=== PATIENT | male | born 1975 | race Caucasian/White ===

== ENCOUNTER → 2017-11-27 | Outpatient (CLI) | payer BC ==
--- NOTE | 2017-11-27 10:20 | ECHOF ---
Referral Reason:K94.31 Abnormal EKG MEASUREMENTS -------- HEIGHT: 157.5 cm WEIGHT: 108.9 kg BP: 126/71 IVSd: 1.2 cm (0.6 - 1.1) LVIDd: 4.1 cm (3.9 - 5.3) LVPWd: 1.5 cm (0.6 - 1.1) IVSs: 1.8 cm LVIDs: 2.8 cm LVPWs: 1.7 cm Ao Diam: 3.5 cm (2.0 - 3.7) AV Cusp: 2.0 cm (1.5 - 2.6) LA Diam: 2.5 cm (2.7 - 3.8) MV EXCURSION: 16.659 mm (> 18.000) MV EF SLOPE: 77 mm/s (70 - 150) EPSS: 0.3 cm MV E Oswaldo: 0.68 m/s MV DecT: 170 ms MV A Oswaldo: 0.73 m/s MV E/A Ratio: 0.93 RAP: 5.00 mmHg RVSP: 19.35 mmHg FINDINGS -------- Sinus rhythm. This was a technically good study. The left ventricular size is normal. There is mild concentric left ventricular hypertrophy. Overa ll left ventricular systolic function is normal with, an EF between 55 - 60 %. The right ventricle is normal in size and function. The left atrium is normal in size. The right atrium is normal in size. The aortic valve is trileaflet, and appears structurally normal. No aortic stenosis or regurgitation. There is trace mitral regurgitation. Trace tricuspid regurgitation present. The right ventricular systolic pressure, as measured by Dopp ler, is 19.35mmHg. Pulmonic valve appears structurally normal. The aortic root size is normal. Normal inferior vena cava with normal inspiratory collapse consistent with estimated right atrial pre ssure of 5 mmHg. The pericardium is normal. CONCLUSIONS -------- 1. Sinus rhythm. 2. This was a technically good study. 3. The left ventricular size is normal. 4. There is mild concentric left ventricular hypertrophy. 5. Overall left ventricular systolic function is normal with, an EF between 55 - 60 %. 6. The right ventricle is normal in size and function. 7. The left atrium is normal in size. 8. The right atrium is normal in size. 9. The aortic valve is trileaflet, and appears structurally normal. No aortic stenosis or regurgitati on. 10. There is trace mitral regurgitation. 11. Trace tricuspid regurgitation present. 12. The right ventricular systolic pressure, as measured by Doppler, is 19.35mmHg. 13. Pulmonic valve appears structurally normal. 14. The aortic root size is normal. 15. Normal inferior vena cava with normal inspiratory collapse consistent with estimated right atrial pressure of 5 mmHg. 16. The pericardium is normal. FORMING MACHINE ADJUSTER: Asiya Sommers RDCS
== END | disposition home or self-care (01) ==
LOC: RADNMMAIN 08:24
PROVIDERS: ATTEND Family Medicine
DX: I51.7 Cardiomegaly (principal)
CPT/HCPCS: 93306

== ENCOUNTER → 2017-11-28 | Outpatient (CLI) | payer BC ==
[~2017-11-28] MED LIST: REGADENOSON 0.4 MG/5 ML SYRINGE IV ONE
--- NOTE | 2017-11-28 10:19 | EST ---
EXERCISE STRESS AGE: 42 SEX: M HT: 74" WT: 240 PROTOCOL: Lexiscan Cardiolite Stress Test HEART RATE REST: 76 BLOOD PRESSURE REST: 125/87 MAXIMUM HEART RATE ACHIEVED: 105 MAXIMUM BLOOD PRESSURE: 141/80 85% MPHR: 153 100% MPHR: 180 INDICATIONS: Abnormal EKG. CLINICAL INFORMATION: Baseline EKG shows sinus rhythm, normal axis, normal intervals. The patient was given intravenous Lexiscan as per protocol. Did not have chest pain or diagnostic ST-segment depression. CONCLUSION: 1. Negative stress test by EKG criteria. 2. Cardiolite portion of the stress test will be reported separately. MMODL / IJN: [id number] /
--- NOTE | 2017-11-28 11:40 | NM ---
EXAMINATION TYPE: NM stress lexiscan cardiolite DATE OF EXAM: 11/28/2017 COMPARISON: NONE HISTORY: Abnormal EKG. No chest pain, shortness of breath, palpitations, angina, hyperlipidemia, diab etes, hypertension, family history of coronary artery disease, tobacco abuse, prior MS, prior CABG, o r prior catheterization. TECHNIQUE: After the intravenous administration of 10.54 mCi Tc 99m Sestamibi - Cardiolite resting S PECT images acquired 45 minutes post injection. The patient received 0.4mg Lexiscan, 30.0 mCi Tc 99m Sestamibi - Stress images obtained [address] injection FINDINGS: Review of stress and rest SPECT images demonstrates no distinct perfusion abnormality. Gated analysi s shows normal wall motion with an estimated left ventricular ejection fraction of 57 %. Calculated T ID is within normal limits at 0.90. IMPRESSION: 1. No scintigraphic evidence for reversible ischemia. 2. Estimated left ventricular ejection fraction of 57 %.
== END | disposition home or self-care (01) ==
LOC: RADNMMAIN 07:57
PROVIDERS: ATTEND Family Medicine
DX: R94.31 Abnormal electrocardiogram [ECG] [EKG] (principal)
CPT/HCPCS: 93017; 78452; A9500; J2785

== ENCOUNTER → 2020-12-17 | Outpatient (CLI) | payer BC ==
--- NOTE | 2020-12-17 10:43 | P.STRESS ---
- Stress Test Note Stress Test Results/Findings: Exam Performed: NM stress lexiscan cardiolite Exam Date: 12/17/20 Reason for Exam: ABN ECG Height: 6 ft 2 in Weight: 102 kg Protocol: LEXISCAN CARDIOLITE Stage: NA Duration of Exercise: NA Resting Heart Rate: 66 Resting Blood Pressure: 145/88 Maximum Achieved Heart Rate: 111 Maximum Achieved Blood Pressure: 154/88 85% PMHR: 150 100% PMHR: 177 METS: NA Technologist Comment: Stress Test Results/Findings: This is a 45-year-old gentleman with history of hypertension, family history of ischemic heart disease being evaluated for cardiac status. Because of abnormal EKG. Stress data: Baseline EKG showed sinus rhythm with small Q waves in inferior leads. Blood pressure at rest is 145/88 with pulse rate of 66. A standard dose of Lexiscan was infused EKGs taken during and after infusion did not reveal an significant change from the baseline. Final impression: #1. Negative Lexiscan stress test #2. Report on the nuclear images to be given by the radiologist.
--- NOTE | 2020-12-17 12:29 | NM ---
EXAMINATION TYPE: NM stress lexiscan cardiolite DATE OF EXAM: 12/17/2020 COMPARISON: NONE HISTORY: Abnormal EKG TECHNIQUE: After the intravenous administration of 9.9 mCi Tc 99m Sestamibi - Cardiolite resting SPE CT images acquired 60 minutes post injection. The patient received 0.4mg Lexiscan, 25.3 mCi Tc 99m Sestamibi - Stress images obtained [address] injection FINDINGS: Review of stress and rest SPECT images demonstrates no distinct perfusion abnormality. Gated analysi s shows normal wall motion with an estimated left ventricular ejection fraction of 52 %. IMPRESSION: No scintigraphic evidence for reversible ischemia.
== END | disposition home or self-care (01) ==
LOC: RADNMMAIN 07:03
PROVIDERS: ATTEND Family Medicine
DX: R94.31 Abnormal electrocardiogram [ECG] [EKG] (principal)
CPT/HCPCS: 93017; 78452; A9500

== ENCOUNTER → 2021-11-24 | Outpatient (CLI) | payer OTHER ==
--- NOTE | 2021-11-24 12:45 | XR ---
EXAMINATION TYPE: XR knee complete RT DATE OF EXAM: 11/24/2021 COMPARISON: NONE HISTORY: Pain TECHNIQUE: Three views are submitted. FINDINGS: Mild narrowing of the joint space. Small spur along the upper margin of the patella. Moderate suprapa tellar bursal fluid collection. Sclerotic density overlying the proximal tibia likely related to bone island. Osseous structures are intact. No acute fracture seen. IMPRESSION: 1. No acute fracture or dislocation. There is a suprapatellar bursal fluid collection which can be a ssociated with internal derangement of the knee. Consider follow-up MRI.
== END | disposition home or self-care (01) ==
LOC: RADXRMAIN 12:21
PROVIDERS: ATTEND Emergency Medicine
DX: M23.8X1 Other internal derangements of right knee (principal)

== ENCOUNTER → 2021-12-09 | Outpatient (CLI) | payer OTHER ==
--- NOTE | 2021-12-10 03:12 | MR ---
EXAMINATION TYPE: MR knee RT wo con DATE OF EXAM: 12/09/2021 COMPARISON: None HISTORY: Right knee contusion. Multiple planar multi echo imaging of the right knee without contrast. There is patchy increased signal on T2 images in the lateral femoral condyle. There is small area of increased signal in the medial aspect medial femoral condyle. The collateral ligaments appear intact. There is increased signal in the anterior cruciate ligament at the attachment on the tibial spine. T he posterior cruciate ligament appears intact. There is some thinning of the anterior horn of the lat eral meniscus with small areas of increased signal. There is narrowing of the lateral joint space. Th ere is mild thinning of the medial meniscus. No evidence of medial meniscal tear. There is some cutan eous edema anterior to the knee. There is knee joint effusion. There is no fracture line seen. Patell a is intact. IMPRESSION: There is some increased signal within the distal femur consistent with bone bruise. There is minor sp urring of the lateral femoral and tibial condyles and osteoarthritic changes. Multiple small tears of the anterior horn of the lateral meniscus. There is partial tear of the anterior cruciate ligament a t the attachment on the tibial spine. Moderate knee joint effusion.
== END | disposition home or self-care (01) ==
LOC: RADMRIMAIN 20:52
PROVIDERS: ATTEND Emergency Medicine
DX: S83.511D Sprain of anterior cruciate ligament of right knee, subsequent encounter (principal); M17.11 Unilateral primary osteoarthritis, right knee; S83.281D Other tear of lateral meniscus, current injury, right knee, subsequent encounter; M25.461 Effusion, right knee; X58.XXXD Exposure to other specified factors, subsequent encounter

== ENCOUNTER 2022-08-16 17:02 | Inpatient (IN) | payer BC ==
--- NOTE | 2022-08-16 18:59 | ED ---
General Adult HPI - General Chief complaint: Extremity Problem,Nontraumatic Stated complaint: left arm weakness/numbness Time Seen by Provider: 08/16/22 18:48 Source: patient, RN notes reviewed, old records reviewed Mode of arrival: ambulatory Limitations: no limitations - History of Present Illness Initial comments: This is a 47-year-old male presents emergency Department who denies any past medical history. Patient states yesterday in the early afternoon he started noticing that his left hand was losing fine motor skills and he had a decreased sensation in the hand and fingers. Patient states he noticed it was difficult to grab some books that he want to carry it was also difficult for him to shake a salt shaker. Patient denies any actual weakness in that arm. Patient denies any headache patient denies any visual disturbance. Patient denies any other extremity problem. Patient denies any facial droop or speech abnormality. He denies any recent injury or trauma. Patient denies any similar symptoms in the past. Patient denies chest pain difficulty breathing or shortness of breath. Patient denies any recent fever chills or cough. - Related Data Home Medications Medication Instructions Recorded Confirmed Meloxicam [Mobic] 15 mg PO DAILY PRN 08/16/22 08/16/22 Spironolactone 25 mg PO DAILY 08/16/22 08/16/22 Testosterone Cypionate 600 mg IM Q30D 08/16/22 08/16/22 [Depo-Testosterone] amLODIPine [Norvasc] 10 mg PO DAILY 08/16/22 08/16/22 methylPREDNISolone Dose Pack See Taper PO DIRECTED 08/16/22 08/16/22 [Medrol Dose Pack] traMADol HCL 50 mg PO DAILY PRN 08/16/22 08/16/22 Allergies Allergy/AdvReac Type Severity Reaction Status Date / Time No Known Allergies Allergy Verified 08/16/22 19:50 Review of Systems ROS Statement: Those systems with pertinent positive or pertinent negative responses have been documented in the HPI. ROS Other: All systems not noted in ROS Statement are negative. Past Medical History Past Medical History: No Reported History History of Any Multi-Drug Resistant Organisms: None Reported Past Surgical History: No Surgical Hx Reported Past Psychological History: No Psychological Hx Reported Smoking Status: Never smoker Past Alcohol Use History: None Reported Past Drug Use History: None Reported General Exam - General Exam Comments Initial Comments: GENERAL: Patient is well-developed and well-nourished. Patient is nontoxic and well- hydrated and is in no acute distress. ENT: Neck is soft and supple. No significant lymphadenopathy is noted. Oropharynx is clear. Moist mucous membranes. Neck has full range of motion without eliciting any pain. EYES: The sclera were anicteric and conjunctiva were pink and moist. Extraocular movements were intact and pupils were equal round and reactive to light. Eyelids were unremarkable. PULMONARY: Unlabored respirations. Good breath sounds bilaterally. No audible rales rhonchi or wheezing was noted. CARDIOVASCULAR: There is a regular rate and rhythm without any murmurs gallops or rubs. ABDOMEN: Soft and nontender with normal bowel sounds. No palpable organomegaly was noted. There is no palpable pulsatile mass. SKIN: Skin is clear with no lesions or rashes and otherwise unremarkable. NEUROLOGIC: Patient is alert and oriented x3. Cranial nerves II through XII are grossly intact. Motor and sensory are also intact. Normal speech, volume and content. Symmetrical smile. Finger to nose cerebellar testing is slower on the left than the right. Patient's NIH is 2 MUSCULOSKELETAL: Normal extremities with adequate strength and full range of motion. No lower extremity swelling or edema. No calf tenderness. LYMPHATICS: No significant lymphadenopathy is noted PSYCHIATRIC: Normal psychiatric evaluation. Limitations: no limitations Course Vital Signs 08/16/22 08/16/22 17:15 19:02 Temperature 97.3 F L Pulse Rate 105 H 100 Respiratory 18 20 Rate Blood Pressure 134/90 136/89 O2 Sat by Pulse 97 98 Oximetry Medical Decision Making - Medical Decision Making CT head and CT of head and neck are all negative. Patient continues to have coordination problems with the left hand. - Lab Data Result diagrams: 08/16/22 19:00 08/16/22 19:00 Lab Results 08/16/22 08/16/22 08/16/22 Range/Units 19:00 19:00 19:00 WBC 10.9 H (3.8-10.6) k/uL RBC 5.79 (4.30-5.90) m/uL Hgb 17.3 (13.0-17.5) gm/dL Hct 51.9 (39.0-53.0) % MCV 89.5 (80.0-100.0) fL MCH 29.9 (25.0-35.0) pg MCHC 33.4 (31.0-37.0) g/dL RDW 14.2 (11.5-15.5) % Plt Count 321 (150-450) k/uL MPV 8.3 Neutrophils % 68 % Lymphocytes % 20 % Monocytes % 8 % Eosinophils % 2 % Basophils % 0 % Neutrophils # 7.4 (1.3-7.7) k/uL Lymphocytes # 2.2 (1.0-4.8) k/uL Monocytes # 0.9 (0-1.0) k/uL Eosinophils # 0.2 (0-0.7) k/uL Basophils # 0.1 (0-0.2) k/uL PT 11.2 (9.0-12.0) sec INR 1.0 (<1.2) APTT 23.8 (22.0-30.0) sec Sodium 139 (137-145) mmol/L Potassium 4.3 (3.5-5.1) mmol/L Chloride 103 (98-107) mmol/L Carbon Dioxide 24 (22-30) mmol/L Anion Gap 12 mmol/L BUN 12 (9-20) mg/dL Creatinine 0.95 (0.66-1.25) mg/dL Est GFR (CKD-EPI)AfAm >90 (>60 ml/min/1.73 sqM) Est GFR (CKD-EPI)NonAf >90 (>60 ml/min/1.73 sqM) Glucose 99 (74-99) mg/dL Calcium 9.7 (8.4-10.2) mg/dL Total Bilirubin 0.9 (0.2-1.3) mg/dL AST 30 (17-59) U/L ALT 39 (4-49) U/L Alkaline Phosphatase 63 (38-126) U/L Troponin I (0.000-0.034) ng/mL Total Protein 7.1 (6.3-8.2) g/dL Albumin 4.6 (3.5-5.0) g/dL 08/16/22 Range/Units 19:00 WBC (3.8-10.6) k/uL RBC (4.30-5.90) m/uL Hgb (13.0-17.5) gm/dL Hct (39.0-53.0) % MCV (80.0-100.0) fL MCH (25.0-35.0) pg MCHC (31.0-37.0) g/dL RDW (11.5-15.5) % Plt Count (150-450) k/uL MPV Neutrophils % % Lymphocytes % % Monocytes % % Eosinophils % % Basophils % % Neutrophils # (1.3-7.7) k/uL Lymphocytes # (1.0-4.8) k/uL Monocytes # (0-1.0) k/uL Eosinophils # (0-0.7) k/uL Basophils # (0-0.2) k/uL PT (9.0-12.0) sec INR (<1.2) APTT (22.0-30.0) sec Sodium (137-145) mmol/L Potassium (3.5-5.1) mmol/L Chloride (98-107) mmol/L Carbon Dioxide (22-30) mmol/L Anion Gap mmol/L BUN (9-20) mg/dL Creatinine (0.66-1.25) mg/dL Est GFR (CKD-EPI)AfAm (>60 ml/min/1.73 sqM) Est GFR (CKD-EPI)NonAf (>60 ml/min/1.73 sqM) Glucose (74-99) mg/dL Calcium (8.4-10.2) mg/dL Total Bilirubin (0.2-1.3) mg/dL AST (17-59) U/L ALT (4-49) U/L Alkaline Phosphatase (38-126) U/L Troponin I <0.012 (0.000-0.034) ng/mL Total Protein (6.3-8.2) g/dL Albumin (3.5-5.0) g/dL Disposition Clinical Impression: CVA (cerebral vascular accident) Disposition: ADMITTED IP TO THIS HOSP Referrals: Mansoor Linder MD [Primary Care Provider] - 1-2 days Time of Disposition: 20:22
[2022-08-16 19:28] LABS: Basophils # (A) 0.1 k/uL (0-0.2); Basophils % (A) 0 %; Eosinophils # (A) 0.2 k/uL (0-0.7); Eosinophils % (A) 2 %; HCT 51.9 % (39.0-53.0); HGB 17.3 gm/dL (13.0-17.5); Lymphocytes # (A) 2.2 k/uL (1.0-4.8); Lymphocytes % (A) 20 %; MCH 29.9 pg (25.0-35.0); MCHC 33.4 g/dL (31.0-37.0); MCV 89.5 fL (80.0-100.0); Mean Platelet Volume 8.3; Monocytes # (A) 0.9 k/uL (0-1.0); Monocytes % (A) 8 %; Neutrophils # (A) 7.4 k/uL (1.3-7.7); Neutrophils % (A) 68 %; Platelet Count 321 k/uL (150-450); RBC 5.79 m/uL (4.30-5.90); RDW 14.2 % (11.5-15.5); WBC 10.9 k/uL (3.8-10.6)
[2022-08-16 19:37] LABS: Partial Thromboplastin Time 23.8 sec (22.0-30.0); Prothrombin Time 11.2 sec (9.0-12.0)
[2022-08-16 19:54] LABS: ALT 39 U/L (4-49); AST 30 U/L (17-59); African American GFR (CKD) >90 (>60 ml/min/1.73 sqM); Albumin 4.6 g/dL (3.5-5.0); Alkaline Phosphatase 63 U/L (38-126); Anion Gap 12 mmol/L; Blood Urea Nitrogen 12 mg/dL (9-20); Calcium 9.7 mg/dL (8.4-10.2); Carbon Dioxide 24 mmol/L (22-30); Chloride 103 mmol/L (98-107); Glucose 99 mg/dL (74-99); Non-African American GFR(CKD) >90 (>60 ml/min/1.73 sqM); Potassium 4.3 mmol/L (3.5-5.1); Sodium 139 mmol/L (137-145); Total Bilirubin 0.9 mg/dL (0.2-1.3); Total Protein 7.1 g/dL (6.3-8.2)
--- NOTE | 2022-08-16 20:18 | CT ---
EXAMINATION TYPE: CT brain wo con CT DLP: 1206.6 mGycm, Automated exposure control for dose reduction was used. DATE OF EXAM: 08/16/2022 7:30 PM COMPARISON: CTA head neck same day.. CLINICAL INDICATION:Male, 47 years old with history of Neuro deficit, acute, stroke suspected, Neuro deficit, acute, stroke suspected TECHNIQUE: Brain: Axial CT images of the brain were obtained with coronal and sagittal reformats created and rev iewed. Contrast used: None. Oral contrast used: None. FINDINGS: Brain: Extra-axial spaces: No abnormal extra-axial fluid collections. Ventricular system: Within normal limits Cerebral parenchyma: No acute intraparenchymal hemorrhage or mass effect. The garza-white junction is well differentiated. Cerebellum: Unremarkable. Mass effect: No evidence of midline shift. Intracranial vasculature: unremarkable Soft tissues: Normal. Calvarium/osseous structures: No depressed skull fracture. Paranasal sinuses and mastoid air cells: Mild scattered paranasal sinus disease. Visualized orbits: Orbital contents are intact. IMPRESSION: No acute intracranial process.
--- NOTE | 2022-08-16 20:18 | CT ---
EXAMINATION TYPE: CT angio head neck CT DLP: 665.5 mGycm, Automated exposure control for dose reduction was used. DATE OF EXAM: 08/16/2022 8:00 PM COMPARISON: Same day CT brain.. CLINICAL INDICATION:Male, 47 years old with history of Neuro deficit, acute, stroke suspected;, Neuro deficit, acute, stroke suspected TECHNIQUE: Axially acquired helical CT angiogram of the head and neck was obtained with contrast. Axi al images are supplemented with 3D reconstructions which [facility] NASCET criteria used. Contrast used:65cc mL of Isovue 370 with IV Contrast, Oral contrast used: None. FINDINGS: CTA HEAD: No evidence of acute intracranial hemorrhage, mass effect, or midline shift. The ventricles, sulci, a nd cisterns are unremarkable. The visualized portions of the internal carotid arteries, middle cerebral arteries, anterior cerebral arteries, and posterior cerebral arteries are patent. The basilar and vertebral arteries are patent. CTA NECK: Right Carotid System: The common carotid artery and external carotid artery are patent. The carotid bifurcation demonstrate s no evidence of hemodynamically significant stenosis. The remaining portions of the internal carotid artery demonstrate normal size without significant narrowing. Left Carotid System: The common carotid artery and external carotid artery are patent. The carotid bifurcation demonstrate s no evidence of hemodynamically significant stenosis. The remaining portions of the internal carotid artery demonstrate normal size without significant narrowing. Vertebral arteries are patent without evidence hemodynamically significant stenosis. There is a three-vessel aortic arch. The origins of the great vessels are patent. No evidence of hemo dynamically significant stenosis. IMPRESSION: 1. No evidence of dissection of the cervical internal carotid arteries or vertebral arteries or any e vidence of significant stenosis at the carotid bifurcations. 2. No evidence of intracranial high-grade stenosis or intracranial aneurysm.
[2022-08-16] MEDS ORDERED: ASPIRIN 325 MG TAB PO STA (20:22)
--- NOTE | 2022-08-16 21:23 | XR ---
EXAMINATION TYPE: XR chest 2V DATE OF EXAM: 08/16/2022 9:05 PM COMPARISON: None TECHNIQUE: XR chest 2V Frontal and lateral views of the chest. CLINICAL INDICATION:Male, 47 years old with history of altered mental status; FINDINGS: Lungs/Pleura: There is no evidence of pleural effusion, focal consolidation, or pneumothorax. Pulmonary vascularity: Unremarkable. Heart/mediastinum: Cardiomediastinal silhouette is unremarkable. Musculoskeletal: No acute osseous pathology. IMPRESSION: No acute cardiopulmonary disease/process.
[2022-08-17] MEDS: ASPIRIN 325 MG TAB PO SCH (08:57)
[2022-08-17 09:00] LABS: Chol/HDL Ratio 5.15 Ratio; LDL Cholesterol,Calculated 120.2 mg/dL (0.0-131.0)
[2022-08-17] MEDS ORDERED: traMADol 50 MG TAB PO PRN (12:37)
--- NOTE | 2022-08-17 14:21 | P.CNNES ---
History of Present Illness Consult date: 08/17/22 Requesting physician: Isaias Renteria Reason for Consult: CVA History of Present Illness: Patient is a 47-year-old male came to the hospital yesterday at 5:02 PM for left arm incoordination and weakness. Patient states that his symptoms started 2 days ago on Sunday at noon when he noticed slight weakness of the left arm. Yesterday on Sunday, he noticed some coldness and numbness of the left arm, was not working as good. By 6 PM he noticed problems with coordination of the left arm, as it would pass point and was ataxic, not in full control of the left arm. He denies any balance problem, any symptoms related to the facial region, any symptoms related to the legs. No headache, no facial droop or slurred speech. He denies any history of optic neuritis, vertigo, any transient numbness. Patient states that he received flu shot last Sunday on 08/11/2022 and he felt could be reaction of the vaccine. He saw his primary physician yesterday, who gave him Medrol Dosepak. As patient's symptoms persisted, he came to the ER. Vital signs arrival blood pressure 134/90, pulse rate 105, temperature 97.3. B lood test shows WBC 10.9 normal hemoglobin and platelets. PT/PTT normal, CMP normal. CT head showed no acute intracranial process. I personally reviewed CT head, agree with the findings. CTA of head and neck are normal. I personally reviewed CTA head and neck and agree with the findings. Chest x-ray showed no acute cardiopulmonary disease. Patient denies any tobacco use, alcohol, marijuana use. He denies any diabetes. He has hypertension. Patient's home medications include spironolactone, meloxicam, tramadol 50 mg daily, Medrol Dosepak, amlodipine and testosterone shot 200 mg/mL every 30 days. Patient states his mother 72 years of age diagnosed with MS at age 60. Review of Systems Constitutional: Denies chills, Denies fever Eyes: denies blurred vision, denies pain Ears: deny: decreased hearing, earache Ears, nose, mouth and throat: Denies headache, Denies sore throat Cardiovascular: Denies chest pain, Denies shortness of breath Respiratory: Denies cough Gastrointestinal: Denies abdominal pain, Denies diarrhea, Denies nausea, Denies vomiting Genitourinary: Denies incontinence, Denies urinary retention Musculoskeletal: Denies myalgias Integumentary: Denies pruritus, Denies rash Neurological: Reports as per HPI Psychiatric: Denies anxiety, Denies depression Endocrine: Denies fatigue, Denies weight change Hematologic/Lymphatic: Denies easy bruising Allergic/Immunologic: Denies persistent infections Past Medical History Past Medical History: No Reported History History of Any Multi-Drug Resistant Organisms: None Reported Past Surgical History: No Surgical Hx Reported Past Psychological History: No Psychological Hx Reported Smoking Status: Never smoker Past Alcohol Use History: None Reported Past Drug Use History: None Reported - Past Family History Father Family Medical History: No Reported History Mother Family Medical History: No Reported History Medications and Allergies Home Medications Medication Instructions Recorded Confirmed Type Meloxicam [Mobic] 15 mg PO DAILY PRN 08/16/22 08/16/22 History Spironolactone 25 mg PO DAILY 08/16/22 08/16/22 History Testosterone Cypionate 600 mg IM Q30D 08/16/22 08/16/22 History [Depo-Testosterone] amLODIPine [Norvasc] 10 mg PO DAILY 08/16/22 08/16/22 History methylPREDNISolone Dose Pack See Taper PO DIRECTED 08/16/22 08/16/22 History [Medrol Dose Pack] traMADol HCL 50 mg PO DAILY PRN 08/16/22 08/16/22 History Allergies Allergy/AdvReac Type Severity Reaction Status Date / Time No Known Allergies Allergy Verified 08/16/22 19:50 Physical Examination - Vital Signs Vital Signs: Vital Signs Temp Pulse Pulse Resp BP BP Pulse Ox 08/17/22 03:45 85 18 119/88 94 L 08/16/22 23:20 88 17 125/81 93 L 08/16/22 22:00 98.2 F 94 18 167/85 96 08/16/22 21:29 68 20 136/88 998 H 08/16/22 21:01 88 16 136/89 99 08/16/22 19:30 88 16 136/89 98 08/16/22 19:02 100 20 136/89 98 08/16/22 17:15 97.3 F L 105 H 18 134/90 97 Intake and Output 08/16/22 08/17/22 08/17/22 22:59 06:59 14:59 Intake Total 118 Balance 118 Intake: Oral 118 Other: # Voids 1 Weight 108.862 kg Patient is a middle aged male, in no acute distress. Patient is alert awake oriented to time place and person. Speech and language functions are normal. Patient can name and repeat very well. No aphasia or dysarthria. Attention, concentration and fund of knowledge is adequate. On cranial nerve examination, pupils are equal, round and reacting to light, visual metcalf are full on confrontation, with no neglect on double simultaneous stimulation. Extraocular muscles are intact with no nystagmus. Face is symmetric, tongue protrudes to the midline. Palatal elevation and sensation normal, hearing and shoulder shrug normal, facial sensation normal. On muscle strength testing, there is left pronation with very mild drift. Patient's muscle strength is normal in arms and legs distally and proximally except left deltoid which is 5-. Deep tendon reflexes are (right/left) biceps 2/3, brachioradialis 2/3, knee 2/2, ankles 2/2 and plantars downgoing bilaterally. Sensory to touch and temperature is equal in the arms and legs with no neglect on double simultaneous stimulation. Cerebellar function showed mild to moderate ataxia for [id number] testing on the left, but not on the right. Patient has dysdiadochokinesia on the left. Patient has very mild ataxia for [id number] testing only on the left side. Tone and bulk of muscles normal. Finger tapping is slow on the left. Gait deferred.. On general examination, there is no carotid bruit or murmur, S1-S2 audible. Chest is clear on consultation. Abdomen is soft nontender. No organomegaly, bowel sounds present. Peripheral pulses are present. No edema. Results - Laboratory Findings CBC and BMP: 08/16/22 19:00 08/16/22 19:00 Abnormal Lab Findings: Abnormal Labs 08/16/22 08/16/22 19:00 19:00 WBC 10.9 H Triglycerides 205.00 H VLDL Cholesterol, Calc 41.00 H HDL Cholesterol 38.80 L Assessment and Plan Assessment: * 47-year-old male with subacute onset of left arm numbness, slight weakness and ataxia. Examination reveals slight left deltoid weakness, mild ataxia on the left side and brisk reflexes in the left arm as compared to the right. Rule out CVA versus demyelinating disease. Patient's mother has confirmed diagnosis of multiple sclerosis. * Hypertension * Hyperlipidemia Plan: * Patient to undergo MRI of the brain with and without contrast to evaluate for CVA, versus demyelinating disease like MS. * CTA of the neck showed no evidence of dissection or any evidence of significant stenosis at the carotid bifurcations. CTA of the head showed no evidence of intracranial high-grade stenosis or intracranial aneurysm. * Lipid panel with cholesterol 200, LDL 120, HDL 38 and triglycerides 205. * Patient empirically started on aspirin 325 mg daily. * Further management based upon the results of MRI. * Neurology will follow. Thank you for the consult.
--- NOTE | 2022-08-17 15:11 | MR ---
"EXAMINATION TYPE: MR brain wo/w con DATE OF EXAM: 08/17/2022 COMPARISON: CT brain from 1 day earlier HISTORY: Left sided weakness, rule out MS vs CVA. TECHNIQUE: Multiplanar, multisequence images of the brain and brainstem is performed without and with IV contras t, utilizing 11 mL intravenous Gadavist . FINDINGS: Diffusion weighted images demonstrate small areas of increased signal on diffusion weighted images with diminished signal on ADC mapping showing T2 hyperintensity involving the superficial and deep right occipital lobe image 168 series 303 measuring over a discontiguous 1.4 x 0.4 cm area. The re are multiple additional areas of punctate and linear increased signal on diffusion weighted images with diminished signal on ADC mapping involving portions of the posterior right frontal lobe and par ietal occipital lobes higher in the right brain having T2 hyperintensity predominantly subcortical in location for reference images 192 through 232 series 303. No enhancing lesions are evident. Brain vo lume and age appropriate. No left-sided restricted diffusion seen. Midline structures demonstrate normal morphology. The craniocervical junction appears within normal limits. The dural venous sinuses appear patent. The visualized sinuses are clear and the globes are i ntact. Nasal septum remains deviated to right of midline. IMPRESSION: Multifocal evolving acute infarcts in the right brain from the posterior frontal lobe thr ough the parietal and occipital lobes. No abnormal enhancement or enhancing masses or lesions are marycruz dent. A Yellow level critical message alert has been initiated for Mansoor Linder MD via the [employer] 36 0 | Critical Results System on 08/17/2022 3:09 PM. This message alert has been sent to Mansoor Linder MD via the preferences provided by the clinician for the receipt of Radiology Critical Findings. [facility] ID [id number]."
--- NOTE | 2022-08-17 16:11 | CT ---
EXAMINATION TYPE: CT chest wo con DATE OF EXAM: 08/17/2022 COMPARISON: Chest x-ray from yesterday HISTORY: Hypoxia CT DLP: 531.6 mGycm. Automated Exposure Control for Dose Reduction was Utilized. TECHNIQUE: CT scan of the thorax is performed without IV contrast. FINDINGS: LUNGS: The lungs are grossly clear, there is no concerning parenchymal mass or nodule identified. T here is no pleural effusion or pneumothorax seen. The tracheobronchial tree is patent. MEDIASTINUM: Lack of IV contrast is noted to limit evaluation for mediastinal and especially hilar ad enopathy. There are no definitive greater than 1 cm mediastinal lymph nodes. No cardiomegaly or per icardial effusion is seen. OTHER: Small size sliding-type hiatal hernia. Secretion from recent CTA study noted in the visualized portion of bilateral kidneys. IMPRESSION: No acute or chronic pulmonary parenchymal process.
[2022-08-17] MEDS: CLOPIDOGREL 75 MG TAB PO SCH (16:59)
[2022-08-17 19:32] LABS: Appearance,Urine Clear (Clear); Bilirubin,Urine Negative (Negative); Blood,Urine Negative (Negative); Color,Urine Yellow; Glucose,Urine (UA) Negative (Negative); Ketones,Urine Negative (Negative); Leukocyte Esterase,Urine Negative (Negative); Nitrite,Urine Negative (Negative); Protein,Urine Trace (Negative); Urobilinogen,Urine <2.0 mg/dL (<2.0)
[2022-08-17] MEDS: ATORVASTATIN 40 MG TAB PO SCH (19:57)
--- NOTE | 2022-08-17 22:42 | P.CONS ---
History of Present Illness - Reason for Consult Consult date: 08/17/22 Fever Requesting physician: Mansoor Linder - Chief Complaint Left arm weakness x 1 day - History of Present Illness Patient is a 47-year-old male with no reported past medical history presenting to the ER yesterday for evaluation of weakness of the left arm and di fficulty with coordination patient symptom has been going on for about 2 days before presentation to the hospital patient denies having any headache or URI symptoms patient denies having any chest pain or shortness of breath or cough no nausea vomiting no abdominal pain no diarrhea patient on presentation to the hospital was afebrile and no fever have been recorded subsequently white count was 10.9 kidney function was normal liver enzymes are normal urine has been negative patient did have a normal CRP and procalcitonin patient did have a CT of the brain that was negative for bleed chest x-ray was negative patient did have an MRI of the brain which shows multifocal evolving acute infarcts in the right brain from the posterior frontal lobe to the parietal and occipital lobes no abnormal enhancement or enhancing masses or lesions were evident he did have a CT of the chest was negative for acute cardiopulmonary disease infectious disease was consulted concerning for fever which has not been recorded for possible infection patient categorically denies having any fever rigors or chills/ Review of Systems Positive point has been mentioned in the HPI rest of the systems are negative Past Medical History Past Medical History: No Reported History History of Any Multi-Drug Resistant Organisms: None Reported Past Surgical History: No Surgical Hx Reported Past Psychological History: No Psychological Hx Reported Smoking Status: Never smoker Past Alcohol Use History: None Reported Past Drug Use History: None Reported - Past Family History Father Family Medical History: No Reported History Mother Family Medical History: No Reported History Medications and Allergies Home Medications Medication Instructions Recorded Confirmed Type Meloxicam [Mobic] 15 mg PO DAILY PRN 08/16/22 08/16/22 History Spironolactone 25 mg PO DAILY 08/16/22 08/16/22 History Testosterone Cypionate 600 mg IM Q30D 08/16/22 08/16/22 History [Depo-Testosterone] amLODIPine [Norvasc] 10 mg PO DAILY 08/16/22 08/16/22 History methylPREDNISolone Dose Pack See Taper PO DIRECTED 08/16/22 08/16/22 History [Medrol Dose Pack] traMADol HCL 50 mg PO DAILY PRN 08/16/22 08/16/22 History Allergies Allergy/AdvReac Type Severity Reaction Status Date / Time No Known Allergies Allergy Verified 08/16/22 19:50 Physical Exam Vitals: Vital Signs Temp Pulse Pulse Resp BP BP Pulse Ox 08/17/22 12:00 104 F H 104 H 16 121/71 93 L 08/17/22 08:00 97.4 F L 90 16 125/78 94 L 08/17/22 03:45 85 18 119/88 94 L 08/16/22 23:20 88 17 125/81 93 L 08/16/22 22:00 98.2 F 94 18 167/85 96 08/16/22 21:29 68 20 136/88 998 H 08/16/22 21:01 88 16 136/89 99 08/16/22 19:30 88 16 136/89 98 08/16/22 19:02 100 20 136/89 98 08/16/22 17:15 97.3 F L 105 H 18 134/90 97 Intake and Output 08/16/22 08/17/22 08/17/22 22:59 06:59 14:59 Intake Total 118 Balance 118 Intake: Oral 118 Other: # Voids 1 Weight 108.862 kg GENERAL DESCRIPTION: Middle-aged male lying in bed, no distress. No tachypnea or accessory muscle of respiration use. HEENT: Shows Pallor , no scleral icterus. Oral mucous membrane is dry. No pharyngeal erythema or thrush NECK: Trachea central, no thyromegaly. LUNGS: Unlabored breathing. Clear to auscultation anteriorly. No wheeze or crackle. HEART: S1, S2, regular rate and rhythm. No loud murmur ABDOMEN: Soft, no tenderness , guarding or rigidity, no organomegaly EXTREMITIES: No edema of feet. SKIN: No rash, no masses palpable. NEUROLOGICAL: The patient is awake, alert, oriented x3, mood and affect normal. Results CBC & Chem 7: 08/16/22 19:00 08/16/22 19:00 Labs: Abnormal Lab Results - Last 24 Hours (Table) 08/16/22 08/16/22 Range/Units 19:00 19:00 WBC 10.9 H (3.8-10.6) k/uL Triglycerides 205.00 H (0.00-149.00) mg/dL VLDL Cholesterol, Calc 41.00 H (5.00-40.00) mg/dL HDL Cholesterol 38.80 L (40.00-60.00) mg/dL Assessment and Plan (1) Abnormal MRI of head Current Visit: Yes Status: Acute Code(s): R93.0 - ABNORMAL FINDINGS ON DX IMAGING OF SKULL AND HEAD, NEC SNOMED Code(s): 421450067884475 Plan: 1patient presented hospital with left-sided weakness and incoordination of his hand concerning for CVA in this patient who did have a CT MRI of the brain with evidence of evolving multiple infarcts on the right side of the brain with a question of possible embolic phenomena clinically not behaving as septic emboli at there was evidence of any enhancing lesion on MRI patient did not have any fever or elevated white count did have a normal CRP and a procalcitonin. 2blood cultures has been repeated and will be repeated again tomorrow morning to rule out any septic etiology. 3continue the current work-up per neurology clinical suspicious for septic emboli are low at this point, we will hold on any systemic antibiotic therapy at this point we will follow on clinical condition and cultures to further adjust medication if needed Thank you for this consultation will follow this patient along with you Time with Patient: Greater than 30
--- NOTE | 2022-08-18 00:02 | HP ---
HISTORY AND PHYSICAL HISTORY OF PRESENT ILLNESS: He came to the emergency room with having a flu shot, pneumonia shot in the past few days, 1 in each arm, he fine motor skills in his hands and fingers in his left arm which started. He was unable to use a salt shaker, this happened after he got a shot in his arm, is not sure what shot went in his left arm. He denied any facial droop, speech abnormality, or any other symptoms. No cough, congestion, shortness of breath, fever, chills. Nothing new in his life except for the flu shot and COVID booster shot he got in the last few days. HOME MEDICATIONS: Mobic 15 daily, spironolactone 25 daily, testosterone shot monthly, Norvasc 10 mg daily, and tramadol 50 q.8 hours p.r.n. ALLERGIES: Negative. REVIEW OF SYSTEMS: A 14-point review of systems otherwise is negative. PHYSICAL EXAMINATION: VITAL SIGNS: Reviewed. He has a temp today of 104 degrees. He was afebrile on admission. Pulse is 100 to 105, respiratory rate 18-20, blood pressure 130s over 80s to 90s, temp 97.98. HEART: Regular rate and rhythm of heart. ABDOMEN: Soft, nontender. SKIN: No rash, excoriation, or bruising. NEUROLOGIC : Cranial nerves are grossly intact. cerebellar testing slower on the left than the right. NIH is 2. MUSCULOSKELETAL: Range of motion is decent. PSYCH: Fair mood and affect labs no abnormalities. LABORATORY DATA: White count 10.9, no left shift. BUN is 12, creatinine 0.95, albumin 4.6, glucose 99, creatinine 0.95. Troponin was less than 0.012. ASSESSMENT: Possible cerebrovascular accident versus rule out neurologic response to possible injections of flu shot or COVID booster. Get Neurology involved. Get Dr. Longo involved for a high fever. Check blood cultures. Check procalcitonin. Prognosis guarded. MMODL / IJN: [id number] /
[2022-08-18] MEDS: ASPIRIN 325 MG TAB PO SCH (10:33)
[2022-08-18] MEDS: CLOPIDOGREL 75 MG TAB PO SCH (10:34)
[2022-08-18] MEDS: SPIRONOLACTONE 25 MG TAB PO SCH (10:34)
[2022-08-18] MEDS: amLODIPine 10 MG TAB PO SCH (10:34)
--- NOTE | 2022-08-18 10:59 | CA ---
Transthoracic Echo Report Name: Talib Evans Age: 47 Gender: M : 1975 Exam Date: 08/18/2022 08:09 Exam Location: [facility] Ht (in): 74 Wt (lb): 240 Ordering Physician: Latoya Gallardo MD Attending/Referring Phys: Show Girl Vanda Stubbs RDCS Procedure CPT: Indications: Acute CVA, embolic Cardiac Hx: Technical Quality: Good Contrast 1: Total Dose (mL): Contrast 2: Total Dose (mL): MEASUREMENTS (Male / Female) Normal Values 2D ECHO LV Diastolic Diameter PLAX 4.9 cm 4.2 - 5.9 / 3.9 - 5.3 cm LV Systolic Diameter PLAX 3.0 cm IVS Diastolic Thickness 1.3 cm 0.6 - 1.0 / 0.6 - 0.9 cm LVPW Diastolic Thickness 1.3 cm 0.6 - 1.0 / 0.6 - 0.9 cm LV Relative Wall Thickness 0.5 RV Internal Dim ED PLAX 3.6 cm LA Systolic Diameter LX 3.4 cm 3.0 - 4.0 / 2.7 - 3.8 cm LA Volume 55.1 cm??? 18 - 58 / 22 - 52 cm??? M-MODE Aortic Root Diameter MM 3.5 cm AV Cusp Separation MM 2.5 cm DOPPLER AV Peak Velocity 119.8 cm/s AV Peak Gradient 5.7 mmHg MV Area PHT 3.8 cm??? Mitral E Point Velocity 98.2 cm/s Mitral A Point Velocity 66.3 cm/s Mitral E to A Ratio 1.5 MV Deceleration Time 198.6 ms MV E' Velocity 6.9 cm/s Mitral E to MV E' Ratio 14.2 FINDINGS Left Ventricle Left ventricular ejection fraction is estimated at 60-65 %. Left ventricular cavity size normal. Mild concentric left ventricular hypertrophy. Right Ventricle Mild right ventricular dilatation. Right Atrium Normal right atrial size.Negative agitated saline bubble study for right to left shunt. Left Atrium Normal left atrial size. Mitral Valve Structurally normal mitral valve. Mild to moderate mitral regurgitation Aortic Valve Trileaflet aortic valve. No aortic valve stenosis or regurgitation. Tricuspid Valve Structurally normal tricuspid valve. No tricuspid stenosis, regurgitation or prolapse. Pulmonic Valve Structurally normal pulmonic valve. Pericardium Normal pericardium. No pericardial effusion. Aorta Normal size aortic root and proximal ascending aorta. CONCLUSIONS Normal left ventricular dimension and systolic function [id number] mitral regurgitation Previewed by: Dr. Viet Dobson MD (Electronically Signed) Final Date: 18 August 2022 10:59
--- NOTE | 2022-08-18 16:39 | P.PN ---
Subjective Progress Note Date: 08/18/22 Patient was seen for a follow-up. Patient states he is feeling better. His left arm coordination has improved. Denies any new neurological symptoms. His gait is fine. No symptoms in the lower extremities. No speech issues. Objective - Vital Signs Vital signs: Vital Signs Temp 98.3 F 08/18/22 11:27 Pulse 84 08/18/22 15:16 Resp 16 08/18/22 15:16 BP 141/75 08/18/22 15:16 Pulse Ox 98 08/18/22 15:16 FiO2 Intake & Output 08/17/22 08/18/22 08/18/22 18:59 06:59 18:59 Intake Total 358 236 Balance 358 236 Intake: Oral 358 236 Other: # Voids 1 - Exam Mental status, speech and language functions are normal. Muscle strength is normal in the arms and legs. Cranial nerves are normal. Patient has very minimal ataxia for [id number] on the left. Sensations are equal. Tone and bulk of muscles and gait normal. - Labs CBC & Chem 7: 08/16/22 19:00 08/16/22 19:00 Labs: Abnormal Lab Results - Last 24 Hours (Table) 08/17/22 Range/Units 19:11 Urine Protein Trace H (Negative) Microbiology - Last 24 Hours (Table) 08/17/22 12:50 Blood Culture - Preliminary Blood No Growth after 24 hours Assessment and Plan Assessment: * Acute ischemic stroke, multiple small involving right hemispheric region. Appears embolic in nature. Exact cause uncertain. Vascular workup negative. Uncertain if due to hypercoagulable state from receiving Covid vaccine and flu shot same time on 08/11/2022 (4 days prior to onset of neurological symptoms). * Hypertension * Hyperlipidemia Plan: * MRI of the brain with and without contrast revealed multifocal evolving acute infarcts in the right brain from the posterior frontal lobe through the parietal and occipital lobes. No abnormal enhancement or enhancing masses. I personally reviewed MRI, agree with the findings. * CTA of the neck showed no evidence of dissection or any evidence of significant stenosis at the carotid bifurcations. CTA of the head showed no evidence of intracranial high-grade stenosis or intracranial aneurysm. * 2-D echo revealed mild left ventricular hypertrophy, normal EF 60-65%. Mild to moderate MR. Bubble study was negative for any shunt. * Lipid panel with cholesterol 200, LDL 120, HDL 38 and triglycerides 205. Start Lipitor 40 mg daily. * Hemoglobin A1c 5.4. * Telemetry showing sinus rhythm, sinus tachycardia. No other arrhythmia. * Recommend dual antiplatelet medication, Plavix 75 mg and aspirin 81 mg for 21 days, then stop Plavix and continue aspirin 81 mg indefinitely. (Patient was not on any antiplatelet medication at home) * Neurologically clear for discharge. Recommend patient follow up with neurologist in 2-4 weeks. * Recommend off work for 2-4 weeks. Informed patient's nurse about above recommendations.
[2022-08-18] MEDS: ATORVASTATIN 40 MG TAB PO SCH (19:55)
[2022-08-19 05:05] VITALS: RESP 16
--- NOTE | 2022-08-19 05:47 | PN ---
PROGRESS NOTE SUBJECTIVE: A 47-year-old white male, came in with dysarthria of the left arm. He had an echo with a bubble study which was negative today. Waiting for Neurology to try to figure out what causes stroke. Unclear at this time why he is having strokes, except he had a COVID injection and a flu shot injection 2 days prior to the strokes. His dysarthria and his left arm motion are much improved today. He is at 98% on room air. OBJECTIVE: VITAL SIGNS: Blood pressure 140s over 70s, pulse is 84, respiratory rate 16. ASSESSMENT: Acute cerebrovascular accident of unclear etiology. Echo was normal. Chest CT was normal. possibly I have to look for some kind of blood clotting disorder or possibly COVID is causing the stroke as Neurology comes up with a new regimen. He has been started on Plavix. His symptoms are all improving. PROGNOSIS: Guarded. ADRIENNEL / MATEON: [id number] /
[2022-08-19] MEDS: CLOPIDOGREL 75 MG TAB PO SCH (08:09)
[2022-08-19] MEDS: amLODIPine 10 MG TAB PO SCH (08:09)
[2022-08-19] MEDS: SPIRONOLACTONE 25 MG TAB PO SCH (08:09)
[2022-08-19] MEDS ORDERED: ASPIRIN 81 MG PO SCH (09:00)
--- NOTE | 2022-08-19 13:57 | P.PN ---
Subjective Progress Note Date: 08/18/22 Principal diagnosis: Abnormal MRI Patient is a 47-year-old male presented to hospital with left-sided upper extremity weakness and coordination patient did have a MRI of the brain with evidence of multiple infarcts right side of the brain and question of embolic phenomena, infection disease was consulted with concern for fever. On today's evaluation that is 08/18/2022 the patient remains to be afebrile and no fever has been recorded during this hospital stay the patient is feeling better as for his left arm weakness is concerned denies any new weakness patient denies having any chest pain or shortness of breath or cough no nausea no vomiting no abdominal pain and no diarrhea Objective - Vital Signs Vital signs: Vital Signs Temp 98.0 F 08/18/22 08:00 Pulse 92 08/18/22 08:00 Resp 16 08/18/22 08:00 BP 148/82 08/18/22 08:00 Pulse Ox 94 L 08/18/22 08:00 FiO2 Intake & Output 08/17/22 08/18/22 08/18/22 18:59 06:59 18:59 Intake Total 358 Balance 358 Intake: Oral 358 Other: # Voids 1 - Exam GENERAL DESCRIPTION: Middle-aged male lying in bed in no distress RESPIRATORY SYSTEM: Unlabored breathing , decreased breath sounds at bases HEART: S1 S2 regular rate and rhythm , ABDOMEN: Soft , no tenderness EXTREMITIES: No edema feet - Labs CBC & Chem 7: 08/16/22 19:00 08/16/22 19:00 Labs: Abnormal Lab Results - Last 24 Hours (Table) 08/17/22 Range/Units 19:11 Urine Protein Trace H (Negative) Assessment and Plan (1) Abnormal MRI of head Current Visit: Yes Status: Acute Code(s): R93.0 - ABNORMAL FINDINGS ON DX IMAGING OF SKULL AND HEAD, NEC SNOMED Code(s): 347019332691164 Plan: 1patient presented hospital with left-sided weakness and incoordination of his hand concerning for CVA in this patient who did have a CT MRI of the brain with evidence of evolving multiple infarcts on the right side of the brain with a question of possible embolic phenomena clinically not behaving as septic emboli at there was evidence of any enhancing lesion on MRI patient did not have any fever or elevated white count did have a normal CRP and a procalcitonin. 2blood cultures has been negative so for the patient is normal CRP, clinically not behaving as septic emboli, patient did have a echocardiogram no evidence of any vegetation, patient will be monitored closely off antibiotic therapy Time with Patient: Less than 30
[2022-08-19 15:37] VITALS: BP 127/81; PULSE 78; TEMP 97.7
--- NOTE | 2022-08-20 21:05 | DS ---
DISCHARGE SUMMARY FINAL DIAGNOSES: 1. Acute ischemic stroke, multiple. 2. Hypertension. 3. Hyperlipidemia. DISCHARGE DISPOSITION: The patient will be discharged in a stable condition with guarded prognosis. Discharge cleared by Neurology. HISTORY OF PRESENT ILLNESS: This 47-year-old gentleman admitted with acute stroke and the patient had MRA, which showed acute stroke and Dr. Navarro from Neurology saw the patient. The patient is keen on going home. The patient will be discharged home in a stable condition. Guarded prognosis. Diet, cardiac. Follow up with Dr. Lundy. Follow up with Dr. Linder, as mentioned earlier. MEDICATIONS: 1. Plavix 75 mg daily. 2. Aspirin 81 mg. 3. Lipitor 40 mg. 4. Aldactone. Continue Aldactone, Ultram, and the rest of medications. See orders for medication reconciliation sheet for list of medications. MMODL / IJN: [id number] /
== END 2022-08-19 16:24 | disposition home or self-care (01) | DRG 66 ==
LOC: EC 17:02 → 3SCARD 20:23
PROVIDERS: ADMIT Family Medicine; ATTEND Family Medicine
DX: I63.89 Other cerebral infarction (principal); E78.5 Hyperlipidemia, unspecified; R29.702 NIHSS score 2; I10 Essential (primary) hypertension; R27.0 Ataxia, unspecified; Z79.899 Other long term (current) drug therapy; Z82.0 Family history of epilepsy and other diseases of the nervous system
CPT/HCPCS: 36415; 70450; 70496; 70498; 70553; 71046; 71250; 80053; 80061; 81003; 83036; 84145; 84484; 85025; 85379; 85610; 85652; 85730; 86140; 87040; 93005; 93306; 94760; 99285

== ENCOUNTER → 2022-08-23 | Outpatient (CLI) | payer BC ==
[2022-08-24 01:03] LABS: Anti-DNA, DS unit <1.0 IU/mL; DNA Double-Stranded NEGATIVE (NEGATIVE)
[2022-08-25 09:56] LABS: Protein C (Activity) 109 % (71-138)
[2022-08-25 14:00] LABS: Protein C Antigen 117 % (72-160); Protein S Antigen 83 % (50 - 140)
[2022-08-25 14:12] LABS: APTT 39 Sec(s) (<43); Dilute Russell Viper Venom 34 Sec(s) (<44)
== END | disposition home or self-care (01) ==
LOC: LABWHC1 12:37
PROVIDERS: ATTEND Family Medicine
DX: I10 Essential (primary) hypertension (principal); I63.9 Cerebral infarction, unspecified; Z79.899 Other long term (current) drug therapy
CPT/HCPCS: 36415; 85302; 85303; 85305; 85306; 85613; 85730; 86038; 86225; 86800

== ENCOUNTER → 2022-11-08 | Outpatient (CLI) | payer BC ==
--- NOTE | 2022-12-11 11:13 | EM ---
EVENT MONITOR INDICATION: Rule out cardiac arrhythmia. The patient was monitored for 30 days. The baseline rhythm appeared to be sinus mechanism. The patient did have multiple episodes of sinus tachycardia with heart rate more than 150 beats per minute. No atrial fibrillation noted. No SVT noted. No significant sinus pause or sinus arrest. CONCLUSION: 1. This is a 30-day event monitor. 2. The baseline rhythm is sinus mechanism. 3. The patient did have multiple episodes of sinus tachycardia noted. 4. No evidence of atrial fibrillation noted. 5. No significant sinus pause or sinus arrest. MMODL / IJN: [id number] /
== END | disposition home or self-care (01) ==
LOC: RADECHMAIN 06:57
PROVIDERS: ATTEND Psychiatry & Neurology Neurology
DX: R00.0 Tachycardia, unspecified (principal); I63.9 Cerebral infarction, unspecified; I48.91 Unspecified atrial fibrillation
CPT/HCPCS: 93270

== ENCOUNTER → 2022-11-08 | Outpatient (CLI) | payer BC ==
[2022-11-08 14:52] LABS: Chol/HDL Ratio 3.36 Ratio; LDL Cholesterol,Calculated 87.8 mg/dL (0.0-131.0)
[2022-11-08 16:37] LABS: Cardiolipin Ab IgG Interp Positive (NEGATIVE); Cardiolipin Ab IgM Interp NEGATIVE (NEGATIVE); Cardiolipin IgA Antibody <2.0 U/mL; Cardiolipin IgM Antibody <1.5 U/mL
== END | disposition home or self-care (01) ==
LOC: LABWHC1 07:47
PROVIDERS: ATTEND Psychiatry & Neurology Neurology
DX: D68.59 Other primary thrombophilia (principal)
CPT/HCPCS: 36415; 80061; 83090; 86147

== ENCOUNTER → 2023-07-27 | Day surgery (SDC) | payer BC ==
[2023-07-26 16:01] VITALS: BMI 29.5
[~2023-07-27] MED LIST changes: +IV FLUID CONTINUATION 1,000 ML IV ONE; +MIDAZOLAM 2 MG/2 ML VIAL IVP ONE; -REGADENOSON 0.4 MG/5 ML SYRINGE IV ONE; +fentaNYL (PF) 50 MCG/ML 2 ML AMP ONE
[2023-07-27] MEDS: IV FLUID CONTINUATION 1,000 ML IV ONE ×2 (09:05→10:12)
[2023-07-27] MEDS: BENZOCAINE SPRAY 1 CAN MUCOUS MEM ONE ×2 (11:40→11:56)
[2023-07-27] MEDS: fentaNYL (PF) 50 MCG/1 ML VIAL IVP ONE ×2 (11:56→12:01)
--- NOTE | 2023-07-27 12:14 | P.PCN ---
Date of Procedure: 07/27/23 Operative Findings: TRANSESOPHAGEAL ECHOCARDIOGRAM CONDUCTOR AND ENGINEER: ADONIS MURPHY MD, RPVI INDICATION: Rule out cardiac source of embolization SEDATION: Conscious sedation COMPLICATION: None LEVEL OF SEDATION Moderate sedation length of 15 minute PROCEDURE DESCRIPTION: After obtaining an informed consent, the patient was brought to transesophageal echocardiogram room. Pulse oximetry and heart monitors were attached to the patient. The patient throat was sprayed using lidocaine. The patient was turned into left lateral position. After that a bite guard was placed. After an appropriate conscious sedation was initiated, the transesophageal echocardiogram was advanced through a bite guard into the mid esophagus. A 2-D echocardiogram images, color Doppler images, continuous wave images, pulse-wave images, of various cardiac structure were performed. After that the transesophageal echocardiogram probe was advanced into the stomach and fixed to obtain transgastric view was. The probe was brought into the mid esophagus. Inter-atrial septum was interrogated using 2D images, color Doppler images, and then contrast study. After that transesophageal echocardiogram was withdrawn out and upon withdrawing the descending thoracic aorta all the way up to the arch was evaluated. FINDING: The left ventricular dimension and systolic function appeared to be within normal limits. The ejection fraction appears in the range of 55-60%. The right ventricle appeared to be of normal size and function. The left atrium and right atrium appears to be within normal limits for dimension. The left atrial appendage appeared to be intact. The interatrial septum appeared to be intact. The aortic valve and mitral valve both are intact. Normal tricuspid valve and pulmonic valve. No evidence of pericardial effusion CONCLUSION: 1. No evidence of cardiac source of embolization 2. Intact interatrial septum an intact left atrial appendage 3. Normal biventricular dimension and systolic function 4. Normal intracardiac valves 5. No evidence of pericardial effusion
[2023-07-27 15:26] VITALS: TEMP 97.8
[2023-07-27 19:20] VITALS: BP 110/57; PULSE 68; RESP 16
== END ==
LOC: CATHCVL 09:31
PROVIDERS: ATTEND Internal Medicine Interventional Cardiology
DX: I67.9 Cerebrovascular disease, unspecified (principal); I10 Essential (primary) hypertension; E78.5 Hyperlipidemia, unspecified; Z82.49 Family history of ischemic heart disease and other diseases of the circulatory system; Z86.73 Personal history of transient ischemic attack (TIA), and cerebral infarction without residual deficits; Z79.899 Other long term (current) drug therapy
CPT/HCPCS: 93312; 93320; 93325; J2250; J3010

== ENCOUNTER → 2023-09-25 | Outpatient (CLI) | payer BC ==
[2023-09-25 10:01] LABS: Partial Thromboplastin Time 23.8 sec (22.0-30.0); Prothrombin Time 11.4 sec (10.0-12.5)
[2023-09-25 15:32] LABS: HCT 50.3 % (39.6-50.0); MCHC 33.8 g/dL (32.0-37.0); MCV 88.7 FL (80.0-97.0); Mean Platelet Volume 10.3 FL (9.5-12.2); NRBC Per 100 WBC 0 X 10*3/uL (0.00-0.01); Platelet Count 364 X 10*3/uL (140-440); RBC 5.67 X 10*6/uL (4.40-5.60); RDW 13.1 % (11.5-14.5); WBC 9.47 X 10*3/uL (4.50-10.00)
[2023-09-25 15:33] LABS: Basophils # (A) 0.02 X 10*3/uL (0.00-0.10); Basophils % (A) 0.2 %; Eosinophils # (A) 0.18 X 10*3/uL (0.04-0.35); Eosinophils % (A) 1.9 %; Lymphocytes # (A) 1.68 X 10*3/uL (0.90-5.00); Lymphocytes % (A) 17.7 %; Monocytes # (A) 0.76 X 10*3/uL (0.20-1.00); Neutrophils # (A) 6.79 X 10*3/uL (1.80-7.70); Neutrophils % (A) 71.8 %
[2023-09-25 15:53] LABS: Chol/HDL Ratio 2.34 Ratio; LDL Cholesterol,Calculated 48.4 mg/dL (0.0-131.0); VLDL Calculation 10.46 mg/dL (5.00-40.00)
[2023-09-25 16:25] LABS: ALT 56 U/L (10-49); AST 26 U/L (14-35); Albumin 4.8 g/dL (3.8-4.9); Albumin/Globulin Ratio 2.18 Ratio (1.60-3.17); Alkaline Phosphatase 49 U/L (41-126); Blood Urea Nitrogen 14.6 mg/dL (9.0-27.0); Calcium 10.5 mg/dL (8.7-10.3); Chloride 100 mmol/L (96-109); Globulin 2.2 g/dL (1.6-3.3); Glucose 94 mg/dL (70-110); Potassium 5.2 mmol/L (3.5-5.5); Sodium 137 mmol/L (135-145); Total Bilirubin 0.6 mg/dL (0.3-1.2)
== END | disposition home or self-care (01) ==
LOC: LABWHC1 08:11
PROVIDERS: ATTEND Psychiatry & Neurology Neurology
DX: Z00.00 Encounter for general adult medical examination without abnormal findings (principal); D68.61 Antiphospholipid syndrome; I63.9 Cerebral infarction, unspecified
CPT/HCPCS: 36415; 80053; 80061; 83090; 85025; 85610; 85730

== ENCOUNTER → 2025-01-22 | Outpatient (CLI) | payer BC ==
[2025-01-22 14:53] LABS: Basophils # (A) 0.03 X 10*3/uL (0.00-0.10); Basophils % (A) 0.4 %; Eosinophils # (A) 0.24 X 10*3/uL (0.04-0.35); Eosinophils % (A) 3.1 %; HCT 54.2 % (39.6-50.0); HGB 17.9 g/dL (13.0-17.0); Lymphocytes # (A) 1.45 X 10*3/uL (0.90-5.00); Lymphocytes % (A) 18.8 %; MCH 29.1 pg (27.0-32.0); Mean Platelet Volume 10.1 FL (9.5-12.2); Monocytes # (A) 0.59 X 10*3/uL (0.20-1.00); Monocytes % (A) 7.6 %; NRBC Per 100 WBC 0 X 10*3/uL (0.00-0.01); Neutrophils # (A) 5.38 X 10*3/uL (1.80-7.70); Neutrophils % (A) 69.7 %; Platelet Count 414 X 10*3/uL (140-440); RBC 6.16 X 10*6/uL (4.40-5.60); WBC 7.72 X 10*3/uL (4.50-10.00)
[2025-01-22 15:24] LABS: Blood Urea Nitrogen 13.2 mg/dL (9.0-27.0); Carbon Dioxide 24.4 mmol/L (21.6-31.8); Chloride 105 mmol/L (96-109); Chol/HDL Ratio 2.59 Ratio; Glucose 124 mg/dL (70-110); LDL Cholesterol,Calculated 46.5 mg/dL (0.0-131.0); Potassium 4.7 mmol/L (3.5-5.5); Sodium 140 mmol/L (135-145)
[2025-01-22 15:25] LABS: ALT 101 U/L (10-49); AST 43 U/L (14-35); Albumin 4.5 g/dL (3.8-4.9); Albumin/Globulin Ratio 1.88 Ratio (1.60-3.17); Alkaline Phosphatase 54 U/L (41-126); Calcium 10.3 mg/dL (8.7-10.3); Globulin 2.4 g/dL (1.6-3.3); Total Bilirubin 0.8 mg/dL (0.3-1.2); Total Protein 6.9 g/dL (6.2-8.2)
== END | disposition home or self-care (01) ==
LOC: LABWHC1 10:04
PROVIDERS: ATTEND Family Medicine
DX: I10 Essential (primary) hypertension (principal); E11.9 Type 2 diabetes mellitus without complications; Z79.899 Other long term (current) drug therapy
CPT/HCPCS: 36415; 80053; 80061; 82306; 82607; 82746; 84403; 85025